=== PATIENT | male | born 1990 | race Caucasian/White ===

== ENCOUNTER 2019-04-15 21:45 | Emergency (ER) | payer SELFPAY ==
[2019-04-15 23:00] LABS: Protime INR 1.07
[2019-04-15 23:03] LABS: ALT/SGPT 41 U/L (12-78); AST/SGOT 22 U/L (15-37); Albumin 3.5 g/dL (3.4-5.0); Alkaline Phosphatase 63 U/L (45-117); BUN Blood Urea Nitrogen 13 mg/dL (7-18); Bicarbonate 28 mmol/L (21-32); Bilirubin Direct < 0.1 mg/dL (0-0.2); Bilirubin Total 0.2 mg/dL (0.2-1.0); Glucose Level 93 mg/dL (74-106); Magnesium 2.1 mg/dL (1.8-2.4); NT PRO-BNP 20 pg/mL (<125); Potassium 3.8 mmol/L (3.5-5.1); Sodium Level 138 mmol/L (136-145); Troponin (Emerg Dept Use Only) < 0.02 ng/mL (0.0-0.045)
[2019-04-15 23:04] LABS: Absolute Lymphocytes (CBC) 1.8 K/uL (0.7-4.9); Absolute Monocytes 0.5 K/uL (0.1-1.3); Absolute Neutrophil 3.7 K/uL (1.8-8.0); Basophils % 0.8 % (0-1.3); Eosinophils % 3.2 % (0-4.4); Hematocrit 40.6 % (39.6-49.0); Lymphocytes % 28.3 % (15.3-44.8); Monocytes % 7.4 % (3.3-12.3); RBC Red Blood Cell Count 5.03 M/uL (4.33-5.43)
[2019-04-15 23:46] LABS: Barbiturates NEGATIVE (NEGATIVE); Benzodiazepines NEGATIVE (NEGATIVE); Cocaine NEGATIVE (NEGATIVE); METHAMPHETAM NEGATIVE (NEGATIVE); Methadone NEGATIVE (NEGATIVE); Opiates NEGATIVE (NEGATIVE); Phencyclidine NEGATIVE (NEGATIVE); THC Cannibis NEGATIVE (NEGATIVE)
[2019-04-15 23:55] LABS: Urine Blood NEGATIVE (NEG); Urine Glucose NEGATIVE (NEG); Urine Protein NEGATIVE (NEG); Urine Specific Gravity 1.015 (1.005-1.030)
--- NOTE | 2019-04-16 00:05 | ER ---
Nurse's Notes [facility] Name: Olaf Dixon Age: 28 yrs Sex: Male : 1990 Arrival Date: 04/15/2019 Time: 21:51 Bed 24 Private MD: Diagnosis: Chest pain, unspecified;Carpal tunnel syndrome, unspecified upper limb Presentation: 04/15 22:00 Presenting complaint: Patient states: "last week I had chest pain and my legs and arms ls4 got numb, it went away. today my knees locked up and then wrists locked up and my legs got numb. My chest hurts with different movements". Transition of care: patient was not received from another setting of care. Onset of symptoms was April 08, 2019. Risk Assessment: Do you want to hurt yourself or someone else? Patient reports no desire to harm self or others. Initial Sepsis Screen: Does the patient meet any 2 criteria? No. Patient's initial sepsis screen is negative. Does the patient have a suspected source of infection? No. Patient's initial sepsis screen is negative. Care prior to arrival: None. 22:00 Method Of Arrival: Ambulatory ls4 22:00 Acuity: AYANA 3 ls4 Triage Assessment: 22:03 General: Appears in no apparent distress. Behavior is calm, cooperative. Pain: ls4 Complains of pain in right knee left knee left wrist right wrist. Neuro: Reports. Cardiovascular: Reports Capillary refill < 3 seconds Patient's skin is warm and dry. Rhythm is sinus rhythm Chest pain is denied. Respiratory: Airway is patent Respiratory effort is even, unlabored. GI: No deficits noted. Derm: Skin is pink, warm \\T\\ dry. Musculoskeletal: Circulation, motion, and sensation intact. Capillary refill < 3 seconds, Range of motion: intact in all extremities. Historical: - Allergies: 22:03 No Known Allergies; ls4 - Home Meds: 22:03 None [Active]; ls4 - PMHx: 22:03 pulmonary valve stenosis; ls4 - Immunization history:: Adult Immunizations up to date, Last tetanus immunization: unknown. - Social history:: Smoking status: Patient/guardian denies using tobacco, never smoked, Patient uses Patient/guardian denies using street drugs. - Ebola Screening: : Patient negative for fever greater than or equal to 101.5 degrees Fahrenheit, and additional compatible Ebola Virus Disease symptoms Patient denies exposure to infectious person Patient denies travel to an Ebola-affected area in the 21 days before illness onset No symptoms or risks identified at this time. Screenin:09 Abuse screen: Denies threats or abuse. Denies injuries from another. Nutritional ls4 screening: No deficits noted. Tuberculosis screening: No symptoms or risk factors identified. Fall Risk None identified. Assessment: 22:01 Cardiovascular: Rhythm is sinus rhythm. ls4 22:09 Pain: Pain does not radiate. Pain began for last week, knees and wrist. Neuro: No ls4 deficits noted. Cardiovascular: No deficits noted. Respiratory: No deficits noted. Derm: Skin is intact, Skin is dry, Skin is pink, warm \\T\\ dry. 23:00 Reassessment: Patient and/or family updated on plan of care and expected duration. Pain ls4 level reassessed. Patient is alert, oriented x 3, equal unlabored respirations, skin warm/dry/pink. Vital Signs: 22:07 BP 142 / 92; Pulse 84; Resp 16; Temp 99.1; Pulse Ox 99% on R/A; Pain 9/10; ls4 23:00 BP 116 / 76; Pulse 74; Resp 16; Pulse Ox 99% on R/A; Pain 6/10; ls4 ED Course: 21:51 Patient arrived in ED. am2 21:56 Lidia Castro, RN is Primary Nurse. ls4 21:56 Yair Carty NP is PHCP. pm1 21:56 Henrry Bean MD is Attending Physician. pm1 22:01 EKG done, by ED staff, reviewed by Henrry Bean MD. ls4 22:02 Triage completed. ls4 22:09 Patient has correct armband on for positive identification. Placed in gown. Bed in low ls4 position. Call light in reach. Side rails up X 1. clinical research monitor on. Pulse ox on. NIBP on. 22:09 Arm band placed on. ls4 22:10 No provider procedures requiring assistance completed. Patient maintains SpO2 ls4 saturation greater than 95% on room air. 22:32 Initial lab(s) drawn, by ks, sent to lab. Inserted saline lock: 20 gauge in right lt1 antecubital area, using aseptic technique. 22:44 XRAY Chest (1 view) In Process Unspecified. EDMS 04/16 00:24 IV discontinued, intact, bleeding controlled, No redness/swelling at site. Pressure ls4 dressing applied. Administered Medications: 00:35 Not Given (Other Intervention Used): TORadol 30 mg IVP once ls4 00:35 Not Given (Other Intervention Used): predniSONE 60 mg PO once ls4 Outcome: 00:03 Discharge ordered by MD. pm1 00:24 Patient left the ED. mw2 00:24 Condition: good ls4 00:24 Discharged to home ambulatory. ls4 00:24 Discharge instructions given to patient, Instructed on discharge instructions, follow up and referral plans. medication usage, safety practices, Demonstrated understanding of instructions, follow-up care, medications. Signatures: Dispatcher [employer] EDKS Yair Carty NP APPLICATION MANAGER pm1 Corina Cevallos am2 Viral Saez mw2 Lidia Castro RN RN ls4 Mely Spence 1
--- NOTE | 2019-04-16 00:05 | EDPHYS ---
Physician Documentation [facility] Name: Olaf Dixon Age: 28 yrs Sex: Male : 1990 Arrival Date: 04/15/2019 Time: 21:51 Bed 24 Private MD: ED Physician Henrry Bean HPI: 04/15 23:57 This 28 yrs old Male presents to ER via Ambulatory with complaints of pain pm1 and numbness to extremities, Chest Pain. 23:57 The patient or guardian reports chest pain that is located primarily in the mid-sternal pm1 area. 23:57 The pain does not radiate. Associated signs and symptoms: Pertinent positives: When the pm1 patient experiences chest pain he feels numbness and tingling to bilateral hands and knees, Pertinent negatives: abdominal pain, cough, diaphoresis, headache, nausea, palpitations, shortness of breath, vomiting. The chest pain is described as sharp. Duration: The patient or guardian reports multiple episodes, the episodes last approximately 3 second(s). Modifying factors: The symptoms are alleviated by nothing. the symptoms are aggravated by nothing. Severity of pain: in the emergency department the pain has resolved. The patient has not experienced similar symptoms in the past. The patient has not recently seen a physician. Onset for 1 week. Historical: - Allergies: 22:03 No Known Allergies; ls4 - Home Meds: 22:03 None [Active]; ls4 - PMHx: 22:03 pulmonary valve stenosis; ls4 - Immunization history:: Adult Immunizations up to date, Last tetanus immunization: unknown. - Social history:: Smoking status: Patient/guardian denies using tobacco, never smoked, Patient uses Patient/guardian denies using street drugs. - Ebola Screening: : Patient negative for fever greater than or equal to 101.5 degrees Fahrenheit, and additional compatible Ebola Virus Disease symptoms Patient denies exposure to infectious person Patient denies travel to an Ebola-affected area in the 21 days before illness onset No symptoms or risks identified at this time. ROS: 23:57 Constitutional: Negative for fever, chills, and weight loss, Eyes: Negative for injury, pm1 pain, redness, and discharge, ENT: Negative for injury, pain, and discharge, Neck: Negative for injury, pain, and swelling. 23:57 Respiratory: Negative for shortness of breath, cough, wheezing, and pleuritic chest pain, Abdomen/GI: Negative for abdominal pain, nausea, vomiting, diarrhea, and constipation, Back: Negative for injury and pain, : Negative for injury, bleeding, discharge, and swelling, MS/Extremity: Negative for injury and deformity, Skin: Negative for injury, rash, and discoloration. 23:57 Cardiovascular: Positive for chest pain, Negative for edema, orthopnea, palpitations. 23:57 Neuro: Positive for numbness, of the right hand, left hand and right knee and left knee. Exam: 22:10 ECG was reviewed by the Attending Physician. NSR, normal ECG 77 BPM pm1 23:57 Constitutional: This is a well developed, well nourished patient who is awake, alert, pm1 and in no acute distress. Head/Face: Normocephalic, atraumatic. Eyes: Pupils equal round and reactive to light, extra-ocular motions intact. Lids and lashes normal. Conjunctiva and sclera are non-icteric and not injected. Cornea within normal limits. Periorbital areas with no swelling, redness, or edema. ENT: Nares patent. No nasal discharge, no septal abnormalities noted. Tympanic membranes are normal and external auditory canals are clear. Oropharynx with no redness, swelling, or masses, exudates, or evidence of obstruction, uvula midline. Mucous membranes moist. Neck: Trachea midline, no thyromegaly or masses palpated, and no cervical lymphadenopathy. Supple, full range of motion without nuchal rigidity, or vertebral point tenderness. No Meningismus. Chest/axilla: Normal chest wall appearance and motion. Nontender with no deformity. No lesions are appreciated. Cardiovascular: Regular rate and rhythm with a normal S1 and S2. No gallops, murmurs, or rubs. Normal PMI, no JVD. No pulse deficits. Respiratory: Lungs have equal breath sounds bilaterally, clear to auscultation and percussion. No rales, rhonchi or wheezes noted. No increased work of breathing, no retractions or nasal flaring. Abdomen/GI: Soft, non-tender, with normal bowel sounds. No distension or tympany. No guarding or rebound. No evidence of tenderness throughout. Back: No spinal tenderness. No costovertebral tenderness. Full range of motion. Skin: Warm, dry with normal turgor. Normal color with no rashes, no lesions, and no evidence of cellulitis. MS/ Extremity: Pulses equal, no cyanosis. Neurovascular intact. Full, normal range of motion. 23:57 Neuro: Orientation: is normal, Motor: is normal, moves all fours, strength is normal, strength is 5/5 in all extremities, Sensation: is normal, no obvious gross deficits, Gait: is steady, at a normal pace, without difficulty. Vital Signs: 22:07 BP 142 / 92; Pulse 84; Resp 16; Temp 99.1; Pulse Ox 99% on R/A; Pain 9/10; ls4 23:00 BP 116 / 76; Pulse 74; Resp 16; Pulse Ox 99% on R/A; Pain 6/10; ls4 MDM: 21:58 Patient medically screened. pm1 04/16 00:02 Data reviewed: vital signs. Data interpreted: Pulse oximetry: on room air is 99 %. pm1 Interpretation: normal. Counseling: I had a detailed discussion with the patient and/or guardian regarding: the historical points, exam findings, and any diagnostic results supporting the discharge/admit diagnosis, lab results, radiology results, the need for outpatient follow up, to return to the emergency department if symptoms worsen or persist or if there are any questions or concerns that arise at home. 04/15 22:19 Order name: Basic Metabolic Panel; Complete Time: 23:07 pm04/15 22:19 Order name: CBC with Diff; Complete Time: 23:07 pm04/15 22:19 Order name: LFT's; Complete Time: 23:07 pm04/15 22:19 Order name: Magnesium; Complete Time: 23:07 pm04/15 22:19 Order name: NT PRO-BNP; Complete Time: 23:07 pm04/15 22:19 Order name: PT-INR; Complete Time: 23:07 pm04/15 22:19 Order name: Troponin (emerg Dept Use Only); Complete Time: 23:07 pm04/15 22:19 Order name: XRAY Chest (1 view) pm04/15 22:19 Order name: EKG; Complete Time: 22:20 pm04/15 22:19 Order name: Cardiac monitoring; Complete Time: 22:26 pm04/15 22:19 Order name: UDS; Complete Time: 23:57 pm1 04/15 23:26 Order name: Urine Dipstick--Ancillary (enter results); Complete Time: 23:57 2 04/15 22:19 Order name: EKG - Nurse/Tech; Complete Time: 22:26 pm1 04/15 22:19 Order name: IV Saline Lock pm1 04/15 22:19 Order name: Labs collected and sent; Complete Time: 23:14 pm1 04/15 22:19 Order name: O2 Per Protocol; Complete Time: 23:14 pm1 04/15 22:19 Order name: O2 Sat Monitoring; Complete Time: 23:14 pm1 Administered Medications: 00:35 Not Given (Other Intervention Used): TORadol 30 mg IVP once ls4 00:35 Not Given (Other Intervention Used): predniSONE 60 mg PO once ls4 Disposition: 07:56 Co-signature as Attending Physician, Henrry Bean MD I agree with the assessment and wa plan of care. Disposition: 04/16/19 00:03 Discharged to Home. Impression: Chest pain, unspecified, Carpal tunnel syndrome, unspecified upper limb. - Condition is Stable. - Discharge Instructions: Carpal Tunnel Syndrome, Nonspecific Chest Pain. - Prescriptions for Diclofenac Sodium 75 mg Oral Tablet Sustained Release - take 1 tablet by ORAL route 2 times per day; 30 tablet. Medrol (Alejandro) 4 mg Oral Tablets, Dose Pack - take 1 tablet by ORAL route as directed - follow package instructions; 1 packet. - Medication Reconciliation Form, Thank You Letter, Antibiotic Education, Prescription Opioid Use form. - Follow up: Emergency Department; When: As needed; Reason: Worsening of condition. Follow up: Private Physician; When: 2 - 3 days; Reason: Recheck today's complaints, Continuance of care, Re-evaluation by your physician. - Problem is new. - Symptoms have improved. Signatures: Dispatcher [employer] EDMS Yair Carty, LAB ANALYST LAB ANALYST pm1 Henrry Bean MD MD wa [place], MyKena mw2 Lidia Castro, RN RN ls4 Corrections: (The following items were deleted from the chart) 00:24 00:03 04/16/2019 00:03 Discharged to Home. Impression: Chest pain, unspecified; Carpal mw2 tunnel syndrome, unspecified upper limb. Condition is Stable. Forms are Medication Reconciliation Form, Thank You Letter, Antibiotic Education, Prescription Opioid Use. Follow up: Emergency Department; When: As needed; Reason: Worsening of condition. Follow up: Private Physician; When: 2 - 3 days; Reason: Recheck today's complaints, Continuance of care, Re-evaluation by your physician. Problem is new. Symptoms have improved. pm1
--- NOTE | 2019-04-16 07:55 | RAD REPORT ---
EXAM DESCRIPTION: Mack Single View04/15/2019 10:44 pm CLINICAL HISTORY: Chest pain COMPARISON: 2010 FINDINGS: The lungs appear clear of acute infiltrate. The heart is normal size IMPRESSION: No acute abnormalities displayed
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
== END 2019-04-16 00:24 | disposition home or self-care (01) ==
LOC: ER 21:45
DX: G56.03 Carpal tunnel syndrome, bilateral upper limbs (principal)
CPT/HCPCS: 36415; 71045; 80048; 80076; 80307; 81003; 83735; 83880; 84484; 85025; 85610; 93005; 99285

== ENCOUNTER 2023-04-13 00:52 | Emergency (ER) | payer OTHER ==
[2023-04-13] MEDS ORDERED: MORPHINE 4 MG/ML SYR ONE (01:27)
[2023-04-13] MEDS ORDERED: KETOROLAC 30 MG/ML INJ ONE (01:27)
[2023-04-13] MEDS ORDERED: ONDANSETRON 4 MG/2 ML VIAL ONE (01:27)
[2023-04-13 01:34] LABS: Absolute Lymphocytes (CBC) 3.4 K/uL (0.7-4.9); Hematocrit 44.5 % (39.6-49.0); Lymphocytes % 40.7 % (15.3-44.8); MCV 79.8 fL (80-100); MPV 8.4 fL (7.6-11.3); RBC Red Blood Cell Count 5.58 M/uL (4.33-5.43)
[2023-04-13 01:47] LABS: Bilirubin Total 0.5 mg/dL (0.2-1.0); Potassium 3.9 mEq/L (3.5-5.1); Protein, Total 8.7 g/dL (6.4-8.2)
--- NOTE | 2023-04-13 03:30 | ER ---
Nurse's Notes [facility] Name: Olaf Dixon Age: 32 yrs Sex: Male : 1990 Arrival Date: 04/13/2023 Time: 00:52 Bed 15 Private MD: Diagnosis: Low back pain;Muscle spasm of back Presentation: 04/13 01:01 Chief complaint: Patient states: "4 days ago I wasn't doing anything and all of a vc1 sudden my back locked up. I went and got a massage and that only helped about 30 minutes.". Coronavirus screen: Vaccine status: Patient reports being unvaccinated. Client denies travel out of the [place] in the last 14 days. At this time, the client does not indicate any symptoms associated with coronavirus-19. Ebola Screen: Patient negative for fever greater than or equal to 101.5 degrees Fahrenheit, and additional compatible Ebola Virus Disease symptoms Patient denies exposure to infectious person. Patient denies travel to an Ebola-affected area in the 21 days before illness onset. No symptoms or risks identified at this time. Initial Sepsis Screen: Does the patient meet any 2 criteria? No. Patient's initial sepsis screen is negative. Does the patient have a suspected source of infection? No. Patient's initial sepsis screen is negative. Risk Assessment: Do you want to hurt yourself or someone else? Patient reports no desire to harm self or others. Onset of symptoms was April 08, 2023. 01:01 Method Of Arrival: Ambulatory vc1 01:01 Acuity: AYANA 3 vc1 Triage Assessment: 01:01 General: Appears in no apparent distress. uncomfortable, Behavior is calm, cooperative, vc1 appropriate for age. Pain: Complains of pain in left mid back Pain radiates to left low back, posterior aspect of left lateral abdomen, left testicle and left leg. EENT: No deficits noted. No signs and/or symptoms were reported regarding the EENT system. Neuro: Level of Consciousness is awake, alert, obeys commands, Oriented to person, place, time, situation, Appropriate for age. Cardiovascular: No deficits noted. 01:01 Respiratory: Airway is patent Respiratory effort is even, unlabored, Respiratory vc1 pattern is regular, symmetrical. GI: No deficits noted. No signs and/or symptoms were reported involving the gastrointestinal system. : No deficits noted. No signs and/or symptoms were reported regarding the genitourinary system. Denies incontinence, pain urinary frequency. Derm: No deficits noted. No signs and/or symptoms reported regarding the dermatologic system. Musculoskeletal: Reports pain in back. Historical: - Allergies: : No Known Allergies; vc1 - Home Meds: : None [Active]; vc1 - PMHx: : Pulmonary valve stenosis; vc1 - PSHx: : None; vc1 - Immunization history:: Client reports having NOT received the Covid vaccine. - Social history:: Smoking status: Patient reports use of chewing tobacco. - Family history:: not pertinent. - Hospitalizations: : No recent hospitalization is reported. Screenin: [facility] ED Fall Risk Assessment (Adult) History of falling in the last 3 months, vc1 including since admission No falls in past 3 months (0 pts) Confusion or Disorientation No (0 pts) Intoxicated or Sedated No (0 pts) Impaired Gait No (0 pts) Mobility Assist Device Used No (0 pt) Altered Elimination No (0 pt) Score/Fall Risk Level 0 - 2 = Low Risk Oriented to surroundings, Maintained a safe environment, Educated pt \\T\\ family on fall prevention, incl call for assistance when getting out of bed. Abuse screen: Denies threats or abuse. Nutritional screening: No deficits noted. Tuberculosis screening: No symptoms or risk factors identified. Assessment: 02:00 Reassessment: No changes from previously documented assessment. Patient and/or family vc1 updated on plan of care and expected duration. Pain level reassessed. Patient is alert, oriented x 3, equal unlabored respirations, skin warm/dry/pink. 02:51 Reassessment: No changes from previously documented assessment. Patient and/or family vc1 updated on plan of care and expected duration. Pain level reassessed. Patient is alert, oriented x 3, equal unlabored respirations, skin warm/dry/pink. Patient states symptoms have not improved. Vital Signs: 01:01 BP 136 / 87; Pulse 83; Resp 16; Temp 99; Pulse Ox 100% ; Pain 10/10; vc1 02:00 BP 120 / 79; Pulse 85; Pulse Ox 97% ; vc1 02:51 BP 121 / 83; Pulse 77; Pulse Ox 97% on R/A; vc1 01:01 Pain Scale: Adult vc1 ED Course: 00:56 Patient arrived in ED. es 01:01 Arm band placed on right wrist. vc1 01: Patient has correct armband on for positive identification. Bed in low position. Call vc1 light in reach. Pulse ox on. NIBP on. 01:02 Parag Martinez MD is Attending Physician. rn 01:14 Inserted saline lock: 20 gauge in right antecubital area, using aseptic technique. vc1 Blood collected. Za Mendez RN is Primary Nurse. vc1 : CBC with Diff Sent. vc1 : CMP Sent. vc1 : Lipase Sent. vc1 : Triage completed. vc1 : CT Stone Protocol In Process Unspecified. EDMS 03: Urinalysis w/ reflexes Sent. vc1 03:39 No provider procedures requiring assistance completed. IV discontinued, intact, vc1 bleeding controlled, No redness/swelling at site. Pressure dressing applied. Administered Medications: : Drug: TORadol - Ketorolac IVP 15 mg Route: IVP; Site: right antecubital; vc1 03:01 Follow up: Response: No adverse reaction; Pain is unchanged, physician notified vc1 :26 Drug: Ondansetron IVP 4 mg Route: IVP; Site: right antecubital; vc1 03:01 Follow up: Response: Pain is unchanged, physician notified vc1 01:26 Drug: morphine IVP or IV 4 mg Route: IVP; Infused Over: 4 mins; Site: right antecubital;vc1 03:01 Follow up: Response: No adverse reaction; Pain is unchanged, physician notified vc1 Medication: 01:34 VIS not applicable for this client. vc1 Outcome: 03:29 Discharge ordered by . rn 03:39 Discharged to home ambulatory. vc1 03:39 Condition: good 03:39 Discharge instructions given to patient, Instructed on discharge instructions, follow up and referral plans. medication usage, Demonstrated understanding of instructions, follow-up care, medications, Prescriptions given X 3. 03:39 Patient left the ED. vc1 Signatures: Dispatcher [employer] EDUT Elsy Austin Roman, MD MD rn Calcote, Vanessa, RN RN vc1 Corrections: (The following items were deleted from the chart) : Chief complaint: Patient states: "4 days ago I wasn't doing anything and all of a vc1 sudden my back locked up. I went and got a massage and that only helped about 30 minutes." [facility] : Coronavirus screen: Vaccine status: Patient reports being unvaccinated. Client vc1 denies travel out of the [place] in the last 14 days. At this time, the client does not indicate any symptoms associated with coronavirus-19. [facility] : Ebola Screen: Patient negative for fever greater than or equal to 101.5 degrees vc1 Fahrenheit, and additional compatible Ebola Virus Disease symptoms Patient denies exposure to infectious person. Patient denies travel to an Ebola-affected area in the 21 days before illness onset. No symptoms or risks identified at this time. [facility] : Initial Sepsis Screen: Does the patient meet any 2 criteria? No. Patient's [facility] initial sepsis screen is negative. Does the patient have a suspected source of infection? No. Patient's initial sepsis screen is negative. [facility] : Risk Assessment: Do you want to hurt yourself or someone else? Patient reports no [facility] desire to harm self or others. [facility] : Onset of symptoms was April 08, 2023 [place] [id number] : Method Of Arrival: Ambulatory [place] [address] 01: BP 136 / 87; Pulse 83bpm; Resp 16bpm; Pulse Ox 100%; Temp 99F; Pain 10/10, Adult; [place] [id number] : Acuity: AYANA 3 [place] [id number] 34 01:34 Arm band placed on right wrist. [place] [id number]
--- NOTE | 2023-04-13 03:30 | EDPHYS ---
Physician Documentation [facility] Name: Olaf Dixon Age: 32 yrs Sex: Male : 1990 Arrival Date: 04/13/2023 Time: 00:52 Bed 15 Private MD: ED Physician Parag Martinez HPI: 04/13 01:58 This 32 yrs old Male presents to ER via Ambulatory with complaints of Back Injury. rn 01:58 The patient presents with pain that is acute, with no known mechanism of injury. The rn symptoms are located in the low back. Onset: The symptoms/episode began/occurred 4 day(s) ago. The pain radiates to the pelvis. Associated signs and symptoms: Pertinent negatives: abdominal pain, chest pain, dysuria, fever, hematuria, incontinence, nausea, numbness, tingling, urinary retention, vomiting, weakness. Modifying factors: The patient symptoms are alleviated by nothing, the patient symptoms are aggravated by any movement. Severity of symptoms: At their worst the symptoms were moderate, in the emergency department the symptoms are unchanged. The patient has not experienced similar symptoms in the past. The patient has not recently seen a physician. Historical: - Allergies: 01:31 No Known Allergies; vc1 - Home Meds: 01:31 None [Active]; vc1 - PMHx: 01:31 Pulmonary valve stenosis; vc1 - PSHx: 01:31 None; vc1 - Immunization history:: Client reports having NOT received the Covid vaccine. - Social history:: Smoking status: Patient reports use of chewing tobacco. - Family history:: not pertinent. - Hospitalizations: : No recent hospitalization is reported. ROS: 01:58 Constitutional: Negative for fever, chills, and weight loss, Cardiovascular: Negative rn for chest pain, palpitations, and edema, Respiratory: Negative for shortness of breath, cough, wheezing, and pleuritic chest pain, Abdomen/GI: Negative for abdominal pain, nausea, vomiting, diarrhea, and constipation, Back: + back pain : Negative for injury, bleeding, discharge, and swelling, MS/Extremity: Negative for injury and deformity, Skin: Negative for injury, rash, and discoloration, Neuro: Negative for headache, weakness, numbness, tingling, and seizure. Exam: 01:58 Constitutional: This is a well developed, well nourished patient who is awake, alert, rn appears uncomfortable Head/Face: Normocephalic, atraumatic. Cardiovascular: Regular rate and rhythm. No pulse deficits. Respiratory: No increased work of breathing, no retractions or nasal flaring. Abdomen/GI: Soft, non-tender Back: No spinal tenderness. No costovertebral tenderness. + left lower perilumbar tenderness of muscle, no skin changes. MS/ Extremity: Pulses equal, no cyanosis. Neuro: Awake and alert, GCS 15 Vital Signs: 01:01 BP 136 / 87; Pulse 83; Resp 16; Temp 99; Pulse Ox 100% ; Pain 10/10; vc1 02:00 BP 120 / 79; Pulse 85; Pulse Ox 97% ; vc1 02:51 BP 121 / 83; Pulse 77; Pulse Ox 97% on R/A; vc1 01:01 Pain Scale: Adult vc1 MDM: 01:02 Patient medically screened. rn 03:27 Differential diagnosis: arthritis, sprain, Ureterolithiasis muscle spasm, rn radiculopathy, kidney stone. Data reviewed: vital signs, nurses notes, lab test result(s), radiologic studies, CT scan, and as a result, I will discharge patient. Counseling: I had a detailed discussion with the patient and/or guardian regarding: the historical points, exam findings, and any diagnostic results supporting the discharge/admit diagnosis, lab results, radiology results, the need for outpatient follow up, to return to the emergency department if symptoms worsen or persist or if there are any questions or concerns that arise at home. Response to treatment: the patient's symptoms have mildly improved after treatment, and as a result, I will discharge patient. Special discussion: I discussed with the patient/guardian in detail that at this point there is no indication for admission to the hospital. It is understood, however, that if the symptoms persist or worsen the patient needs to return immediately for re-evaluation. ED course: No acute findings in blood or ct. Stable vitals. Will dc home with return precautions and prn medications.. 04/13 01:11 Order name: CBC with Diff; Complete Time: 03:20 rn 04/13 01:11 Order name: CMP; Complete Time: 03:20 rn 04/13 01:11 Order name: Lipase; Complete Time: 03:20 rn 04/13 01:11 Order name: Urinalysis w/ reflexes rn 04/13 01:11 Order name: CT Stone Protocol rn 04/13 01:11 Order name: IV Saline Lock; Complete Time: rn 04/13 01:11 Order name: Labs collected and sent; Complete Time: rn Administered Medications: Drug: TORadol - Ketorolac IVP 15 mg Route: IVP; Site: right antecubital; vc1 03:01 Follow up: Response: No adverse reaction; Pain is unchanged, physician notified vc1 :26 Drug: Ondansetron IVP 4 mg Route: IVP; Site: right antecubital; vc1 03:01 Follow up: Response: Pain is unchanged, physician notified vc1 :26 Drug: morphine IVP or IV 4 mg Route: IVP; Infused Over: 4 mins; Site: right antecubital;vc1 03:01 Follow up: Response: No adverse reaction; Pain is unchanged, physician notified vc1 Disposition Summary: 04/13/23 03:29 Discharge Ordered Location: Home rn Problem: new rn Symptoms: have improved rn Condition: Stable rn Diagnosis - Low back pain rn - Muscle spasm of back rn Followup: rn - With: Private Physician - When: As needed - Reason: Recheck today's complaints, Re-evaluation by your physician Discharge Instructions: - Discharge Summary Sheet rn - Acute Back Pain, Adult rn - Muscle Cramps and Spasms rn - Musculoskeletal Pain rn - Back Exercises rn Forms: - Medication Reconciliation Form rn - Thank You Letter rn - Antibiotic rn float - Prescription Opioid Use rn Prescriptions: - Cyclobenzaprine 10 mg Oral Tablet - take 1 tablet by ORAL route every 8 hours As needed; 12 tablet; Refills: 0, rn Product Selection Permitted - Tramadol 50 mg Oral Tablet - take 1 tablet by ORAL route every 8 hours as needed; 12 tablet; Refills: 0, rn Product Selection Permitted - Medrol (Alejandro) 4 mg Oral Tablets, Dose Pack - take 1 tablet by ORAL route as directed - follow package instructions; 1 rn packet; Refills: 0, Product Selection Permitted Signatures: Dispatcher [employer] Parag Moore MD MD rn Calcote, Vanessa, RN RN vc1
[2023-04-13 03:44] VITALS: TEMP 99
[2023-04-13 03:46] VITALS: O2SAT 97
[2023-04-13 03:48] VITALS: BP 121/83
[2023-04-13 04:02] LABS: Specific Gravity > 1.030 (1.005-1.030); Urine Bacteria None Seen /HPF (<20); Urine Bilirubin NEGATIVE (Negative); Urine Blood Negative (Negative); Urine Clarity Clear (Clear); Urine Color Yellow (Yellow); Urine Glucose NEGATIVE (Negative); Urine Mucus 3+ /HPF (None Seen); Urine Protein TRACE (Negative); Urine RBC <5 /HPF (None Seen); Urine Urobilinogen Normal (Normal); Urine pH 5.5 (5.0-7.0)
--- NOTE | 2023-04-16 13:42 | RAD REPORT ---
EXAM DESCRIPTION: CT - Stone Protocol - 04/13/2023 5:47 am CLINICAL HISTORY: The patient is 32 years old and is Male; left flank pain [facility] MAIN TECHNIQUE: Axial computed tomography images of the abdomen and pelvis without intravenous contrast. Sagittal and coronal reformatted images were created and reviewed. This CT exam was performed usi ng one or more of the following dose reduction techniques: automated exposure control, adjustment o f the mA and/or kV according to patient size, and/or use of iterative reconstruction technique. COMPARISON: No relevant prior studies available. FINDINGS: LUNG BASES: Unremarkable. No mass. No consolidation. ABDOMEN: LIVER: Hepatic steatosis. GALLBLADDER AND BILE DUCTS: Unremarkable. No calcified stones. No ductal dilation. PANCREAS: Unremarkable. No ductal dilation. SPLEEN: Unremarkable. No splenomegaly. ADRENALS: Unremarkable. No mass. KIDNEYS AND URETERS: Unremarkable. No hydronephrosis or obstructive intrarenal or intraureteral stones. STOMACH AND BOWEL: Unremarkable. No obstruction. No mucosal thickening. PELVIS: APPENDIX: No findings to suggest acute appendicitis. BLADDER: Unremarkable. No stones. REPRODUCTIVE: Unremarkable as visualized. ABDOMEN and PELVIS: INTRAPERITONEAL SPACE: Unremarkable. No free air. No significant fluid collection. BONES/JOINTS: Limbus deformity of the anterior superior L4 endplate incidentally noted. No acute os seous abnormality. No dislocation. SOFT TISSUES: Tiny fat-containing left inguinal hernia. VASCULATURE: Unremarkable. No abdominal aortic aneurysm. LYMPH NODES: Unremarkable. No enlarged lymph nodes. IMPRESSION: 1. Allowing for lack of intravenous contrast, no acute abnormality within the abdomen or pelvis. Specifically, no hydronephrosis or obstructive intrarenal or intraureteral stones. 2. Hepatic steatosis. Electronically signed by: Suman Murry MD 04/13/2023 3:01 AM CDT Due to temporary technical issues with the PACS/Fluency reporting system, reports are being signed by the in house radiologist without review as a courtesy to ensure prompt reporting. The interpreting r adiologist is fully responsible for the content of the report.
== END 2023-04-13 03:39 | disposition home or self-care (01) ==
LOC: ER 00:52
DX: M62.830 Muscle spasm of back (principal); F17.220 Nicotine dependence, chewing tobacco, uncomplicated
CPT/HCPCS: 85025; 81001; 36415; 83690; 80053; 76377; 74176; 96375; 96374; 99284; J2405

== ENCOUNTER 2023-09-04 20:03 | Emergency (ER) | payer OTHER ==
[2023-09-04] MEDS ORDERED: ACETAMINOPHEN 500 MG TAB ONE (20:31)
--- NOTE | 2023-09-04 21:37 | EDPHYS ---
Physician Documentation [facility] Name: Olaf Dixon Age: 33 yrs Sex: Male : 1990 Arrival Date: 09/04/2023 Time: 20:03 Bed 12 Private MD: ED Physician Dino Blanton HPI: 09/04 21:51 This 33 yrs old Male presents to ER via Ambulatory with complaints of Fever. kb 21:51 Pt reports headache, cough, fever and joint pain that started 3 days ago.. kb 21:51 The patient or guardian reports cough, that is intermittent, described as mild, flu kb symptoms, arthralgias, low-grade fever. Onset: The symptoms/episode began/occurred 3 day(s) ago. Severity of symptoms: At their worst the symptoms were mild, moderate, in the emergency department the symptoms are unchanged. Modifying factors: The symptoms are alleviated by nothing, the symptoms are aggravated by nothing. Associated signs and symptoms: Pertinent positives: fever. The patient has not experienced similar symptoms in the past. The patient has not recently seen a physician. Historical: - Allergies: 20:15 unknown ear drop; mb9 - Home Meds: 20:15 None [Active]; mb9 - PMHx: 20:15 Pulmonary valve stenosis; mb9 - PSHx: 20:15 None; mb9 - Immunization history:: Adult Immunizations up to date. - Social history:: Smoking status: Patient reports use of chewing tobacco. ROS: 21:51 Abdomen/GI: Negative for abdominal pain, nausea, vomiting, diarrhea, and constipation, kb 21:51 Constitutional: Positive for fever, malaise, 21:51 Respiratory: Positive for cough, 21:51 Neuro: Positive for headache, 21:51 All other systems are negative, Exam: 21:51 Constitutional: This is a well developed, well nourished patient who is awake, alert, kb and in no acute distress. Head/Face: Normocephalic, atraumatic. ENT: Moist Mucous membranes Cardiovascular: Regular rate Respiratory: Respirations even and unlabored. No increased work of breathing. Talking in full sentences Skin: Warm, dry with normal turgor. Normal color. MS/ Extremity: Pulses equal, no cyanosis. Neurovascular intact. Full, normal range of motion. Neuro: Awake and alert, GCS 15, oriented to person, place, time, and situation. Moves all extremities. Normal gait. Vital Signs: 20:11 BP 134 / 83; Pulse 102; Resp 18; Temp 100.4; Pulse Ox 100% on R/A; Weight 126.55 kg; mb9 Height 6 ft. 3 in. ; 21:03 Pulse 92; Resp 18; Temp 99.8; Pulse Ox 100% on R/A; mb9 21:36 BP 108 / 78; Pulse 84; Resp 18; Pulse Ox 100% on R/A; mb9 20:11 Body Mass Index 34.87 (126.55 kg, 190.5 cm) mb9 MDM: 20:13 Patient medically screened. kb 21:50 Differential diagnosis: flu, covid, uri. Data reviewed: vital signs, nurses notes. kb Counseling: I had a detailed discussion with the patient and/or guardian regarding the historical points, exam findings, and any diagnostic results supporting the discharge/admit diagnosis, lab results, the need for outpatient follow up, a family practitioner, to return to the emergency department if symptoms worsen or persist or if there are any questions or concerns that arise at home. 09/04 20:16 Order name: Flu kb 09/04 20:16 Order name: SARS-COV-2 RT PCR; Complete Time: 21:30 kb 09/04 20:16 Order name: Strep; Complete Time: 21:30 kb 09/04 20:50 Order name: Throat Culture EDMS Administered Medications: 20:22 Drug: Acetaminophen PO 1000 mg PO once Route: PO; mb9 21:05 Follow up: Response: No adverse reaction mb9 21:35 Drug: Ketorolac IM 30 mg IM once Route: IM; Site: right deltoid; mb9 21:35 Follow up: Response: No adverse reaction mb9 Disposition Summary: 09/04/23 21:36 Discharge Ordered Notes: Location: Home kb Condition: Stable kb Diagnosis - SARS-associated coronavirus as the cause of diseases classified elsewhere kb Followup: kb - With: Emergency Department - When: As needed - Reason: Worsening of condition Followup: kb - With: Private Physician - When: 2 - 3 days - Reason: Recheck today's complaints, Continuance of care, Re-evaluation by your physician Discharge Instructions: - Discharge Summary Sheet kb - COVID-19 kb - Viral Illness, Adult kb Forms: - Work release form kb - Medication Reconciliation Form kb - Thank You Letter kb - Patient Portal Instructions kb - Leadership Thank You Letter kb Signatures: Dispatcher [employer] Xiomy Martel, Aide Lyles, RN RN mb9 Corrections: (The following items were deleted from the chart) 21:52 21:51 Pt reports headache, cough, fever and joint pain that started yesterday.. kb kb
--- NOTE | 2023-09-04 21:37 | ER ---
Nurse's Notes [facility] Name: Olaf Dixon Age: 33 yrs Sex: Male : 1990 Arrival Date: 09/04/2023 Time: 20:03 Bed 12 Private MD: Diagnosis: SARS-associated coronavirus as the cause of diseases classified elsewhere Presentation: 09/04 20:11 Chief complaint: Patient states: "Saturday, I started having a headache and today it got mb9 worse. I started having chills, aches in my joints, mild cough. and fever today. I took Ibuprofen and 3 Excedrin this morning". Coronavirus screen: chills, fever, headache, muscle pain. Ebola Screen: No symptoms or risks identified at this time. Initial Sepsis Screen: Does the patient meet any 2 criteria? HR > 90 bpm. Does the patient have a suspected source of infection? No. Patient's initial sepsis screen is negative. Risk Assessment: Do you want to hurt yourself or someone else? Patient reports no desire to harm self or others. Onset of symptoms was 2022. 20:11 Method Of Arrival: Ambulatory mb9 20:11 Acuity: AYANA 4 mb9 Triage Assessment: 20:16 General: Appears in no apparent distress. Behavior is calm, cooperative. Pain: mb9 Complains of pain in head Pain does not radiate. Quality of pain is described as throbbing, Pain began 2-3 days ago. Is intermittent. EENT: Throat is pink. Neuro: Moser Agitation-Sedation Scale (RASS): 0 - Alert and Calm Level of Consciousness is awake, alert, obeys commands, Oriented to person, place, time, situation, Appropriate for age Reports headache. Cardiovascular: Patient's skin is warm and dry. Respiratory: Airway is patent Respiratory effort is even, unlabored, Respiratory pattern is regular, symmetrical, Breath sounds are clear bilaterally. GI: Patient currently denies cramping, nausea, vomiting. : No signs and/or symptoms were reported regarding the genitourinary system. Derm: Skin is pink, warm \\T\\ dry. Musculoskeletal: Range of motion: intact in all extremities. Historical: - Allergies: 20:15 unknown ear drop; mb9 - Home Meds: 20:15 None [Active]; mb9 - PMHx: 20:15 Pulmonary valve stenosis; mb9 - PSHx: 20:15 None; mb9 - Immunization history:: Adult Immunizations up to date. - Social history:: Smoking status: Patient reports use of chewing tobacco. Screenin:01 [facility] ED Fall Risk Assessment (Adult) History of falling in the last 3 months, mb9 including since admission No falls in past 3 months (0 pts) Confusion or Disorientation No (0 pts) Intoxicated or Sedated No (0 pts) Impaired Gait No (0 pts) Mobility Assist Device Used No (0 pt) Altered Elimination No (0 pt) Score/Fall Risk Level 0 - 2 = Low Risk Oriented to surroundings, Maintained a safe environment, Educated pt \\T\\ family on fall prevention, incl call for assistance when getting out of bed. Abuse screen: Denies threats or abuse. Nutritional screening: No deficits noted. Tuberculosis screening: No symptoms or risk factors identified. Assessment: 20:17 Reassessment: see triage assessment. mb9 21:03 Reassessment: No changes from previously documented assessment. Patient and/or family mb9 updated on plan of care and expected duration. Pain level reassessed. Patient is alert, oriented x 3, equal unlabored respirations, skin warm/dry/pink. 21:36 Reassessment: Patient and/or family updated on plan of care and expected duration. Pain mb9 level reassessed. Patient is alert, oriented x 3, equal unlabored respirations, skin warm/dry/pink. Patient states feeling better. Patient states symptoms have improved. Vital Signs: 20:11 BP 134 / 83; Pulse 102; Resp 18; Temp 100.4; Pulse Ox 100% on R/A; Weight 126.55 kg; mb9 Height 6 ft. 3 in. ; 21:03 Pulse 92; Resp 18; Temp 99.8; Pulse Ox 100% on R/A; mb9 21:36 BP 108 / 78; Pulse 84; Resp 18; Pulse Ox 100% on R/A; mb9 20:11 Body Mass Index 34.87 (126.55 kg, 190.5 cm) mb9 ED Course: 20:09 Patient arrived in ED. ag3 20:11 [facility]ccullough [facility] kb 20:11 Dino Blanton MD is Attending Physician. kb 20:11 Arm band placed on. mb9 20:15 Triage completed. mb9 20:22 Strep Sent. mb9 20:22 SARS-COV-2 RT PCR Sent. mb9 20:22 Flu Sent. mb9 20:44 Aide Tanner, RN is Primary Nurse. mb9 21:01 Placed in gown. Bed in low position. Call light in reach. Side rails up X 1. Client mb9 placed on continuous cardiac and pulse oximetry monitoring. NIBP monitoring applied. 21:01 No provider procedures requiring assistance completed. mb9 21:37 Patient did not have IV access during this emergency room visit. mb9 Administered Medications: 20:22 Drug: Acetaminophen PO 1000 mg PO once Route: PO; mb9 21:05 Follow up: Response: No adverse reaction mb9 21:35 Drug: Ketorolac IM 30 mg IM once Route: IM; Site: right deltoid; mb9 21:35 Follow up: Response: No adverse reaction mb9 Medication: 21:01 VIS not applicable for this client. mb9 Outcome: 21:36 Discharge ordered by . samuel 21:37 Discharged to home ambulatory, mb9 21:37 Condition: stable 21:37 Discharge instructions given to patient, Instructed on discharge instructions, follow up and referral plans. Demonstrated understanding of instructions, follow-up care, 21:41 Patient left the ED. mb9 Signatures: Xiomy Mccullough, MIRYAM MONZON-Ju Noble ag3 Aide Tanner, RN RN mb9
[2023-09-04] MEDS ORDERED: KETOROLAC 30 MG/ML INJ ONE (21:46)
[2023-09-04 22:50] VITALS: O2SAT 100
[2023-09-04 22:51] VITALS: TEMP 99.8
[2023-09-04 22:52] VITALS: BP 108/78
== END 2023-09-04 21:41 | disposition home or self-care (01) ==
LOC: ER 20:03
DX: U07.1 COVID-19 (principal); F17.220 Nicotine dependence, chewing tobacco, uncomplicated
CPT/HCPCS: 87070; 87081; 87635; 87804; 96372; 99284